=== PATIENT | female | born 1950 | race African-American/Black ===

== ENCOUNTER 2017-01-21 10:39 | Emergency (ER) | payer SELFPAY ==
[~2017-01-21] VITALS: Ht 165.1 cm; Wt 66.0 kg
[2017-01-21 12:14] VITALS: BP 110/69
== END 2017-01-21 14:16 | disposition home or self-care (01) ==
LOC: ER 14:06
DX: H66.92 Otitis media, unspecified, left ear (principal); I10 Essential (primary) hypertension; E11.9 Type 2 diabetes mellitus without complications; F17.200 Nicotine dependence, unspecified, uncomplicated
CPT/HCPCS: 99283

== ENCOUNTER 2017-04-24 11:26 | Emergency (ER) | payer OTHER ==
[~2017-04-24] VITALS: Ht 165.1 cm; Wt 64.0 kg
[2017-04-24 11:37] VITALS: BP 133/75
== END 2017-04-24 12:21 | disposition home or self-care (01) ==
LOC: ER 12:11
DX: J06.9 Acute upper respiratory infection, unspecified (principal); I10 Essential (primary) hypertension; E11.9 Type 2 diabetes mellitus without complications
CPT/HCPCS: 99281

== ENCOUNTER 2017-05-13 15:09 | Emergency (ER) | payer OTHER ==
[~2017-05-13] VITALS: Ht 165.1 cm; Wt 65.0 kg
[2017-05-13] MEDS ORDERED: ASPI-1159 PO (17:17)
[2017-05-13] MEDS ORDERED: METF10002 PO (17:17)
[2017-05-13] MEDS ORDERED: LEVVL SQ (17:17)
[2017-05-13] MEDS ORDERED: LOSA1TAB34 PO (17:17)
[2017-05-13] MEDS ORDERED: GLIP5TAB12 PO (17:17)
[2017-05-13] MEDS ORDERED: MORPHINE SULFATE 4 MG/ML CPJ (NOT FOR IM USE) IV PRN (19:30)
[2017-05-13 19:48] LABS: BASOPHILS % 0.6 % (0.0-2.0); EOSINOPHILS % 3.4 % (0.0-5.0); HEMATOCRIT. 36.2 % (36.0-48.0); LYMPHOCYTES % 24.9 % (20.0-50.0); MEAN CORPUSCULAR HEMOGLOBIN 29.5 pg (28.0-32.0); MEAN CORPUSCULAR VOLUME 89.2 fL (81.0-99.0); MONOCYTES % 7.3 % (2.0-8.0); NEUTROPHILS % 63.8 % (40.0-76.0); PLATELET 157 x1000/uL (130-400); RED BLOOD CELL COUNT 4.06 mill/uL (4.2-5.4); RED CELL DISTRIBUTION WIDTH 14.5 % (11.6-14.6)
[2017-05-13 19:52] LABS: CHLORIDE 107 mEq/L (98-107)
[2017-05-13 19:54] LABS: PROTHROMBIN TIME 10.7 sec (9.4-11.6)
[2017-05-13 19:59] LABS: CARBON DIOXIDE 25 mEq/L (21-32)
[2017-05-13] MEDS ORDERED: LORAZEPAM 2MG/ML CPJ IV ONE (20:45)
[2017-05-13] MEDS ORDERED: GADOBENATE DIMEGLUMINE 529 MG/ML 10ML IV ONE (21:25)
[2017-05-13] MEDS: MORPHINE SULFATE 10 MG/ML CPJ IV PRN ×2 (21:50→23:01)
[2017-05-13] MEDS: ONDANSETRON HCL 4MG/2ML VIAL IV PRN ×2 (21:50→23:01)
[2017-05-13 23:30] VITALS: BP 126/67
== END 2017-05-13 23:37 | disposition home or self-care (01) ==
LOC: ER 15:49
DX: M54.5 Low back pain (principal); F17.200 Nicotine dependence, unspecified, uncomplicated; E11.9 Type 2 diabetes mellitus without complications; I10 Essential (primary) hypertension; Z79.82 Long term (current) use of aspirin; Z79.4 Long term (current) use of insulin
CPT/HCPCS: 36415; 72158; 80048; 85025; 85610; 96374; 96375; 96376; 99285; A9577; J2060; J2270; J2405

== ENCOUNTER 2017-06-15 06:49 | Emergency (ER) | payer OTHER ==
[~2017-06-15] VITALS: Ht 162.6 cm; Wt 65.0 kg
[~2017-06-15 06:49] MED LIST: ASPI-1159 PO; GLIP5TAB12 PO; LEVVL SQ; LOSA1TAB34 PO; METF10002 PO
[2017-06-15 07:03] VITALS: BP 135/80
== END 2017-06-15 09:53 | disposition home or self-care (01) ==
LOC: ER 07:16
DX: H66.92 Otitis media, unspecified, left ear (principal); J06.9 Acute upper respiratory infection, unspecified
CPT/HCPCS: 99283